=== PATIENT | female | born 1965 | race Caucasian/White ===

== ENCOUNTER 2017-06-24 15:59 | Outpatient (CLI) | payer BC | END 2017-06-24 16:00 | disposition home or self-care (01) | LOC: CONVCARE 15:59 | PROVIDERS: ATTEND Orthopaedic Surgery | DX: M25.552 Pain in left hip (principal) | CPT/HCPCS: 72170; 73502 ==

== ENCOUNTER 2017-07-30 10:32 | Outpatient (CLI) | payer BC | END 2017-07-30 10:33 | disposition home or self-care (01) | LOC: CONVCARE 10:32 | PROVIDERS: ATTEND Orthopaedic Surgery | DX: M25.552 Pain in left hip (principal); M54.5 Low back pain | CPT/HCPCS: 72120 ==

== ENCOUNTER 2018-04-06 13:48 | Day surgery (SDC) | payer BC ==
[2018-04-06] MEDS ORDERED: BUPIVACAINE HCL 0.25% MPF 30 ML SOL INFIL ONE (14:45)
[2018-04-06] MEDS: DEXAMETHASONE SOD PHOS PF 10 MG/ML SOL IJ ONE ×5 (14:56→15:03)
[2018-04-06 15:18] VITALS: BP 169/98; PULSE 78; RESP 18; TEMP 97.4; O2SAT 99
== END 2018-04-06 15:33 | disposition home or self-care (01) ==
LOC: SURG 13:48
PROVIDERS: ATTEND Nurse Anesthetist, Certified Registered
DX: M54.5 Low back pain (principal); M54.17 Radiculopathy, lumbosacral region
CPT/HCPCS: J1100

== ENCOUNTER 2018-05-10 12:33 | Day surgery (SDC) | payer BC ==
[2018-05-10] MEDS ORDERED: BUPIVACAINE HCL 0.25% MPF 30 ML SOL INFIL ONE (13:23)
[2018-05-10] MEDS ORDERED: LIDOCAINE HCL 1% MPF 30 SOL ONE (13:25)
[2018-05-10 13:39] VITALS: O2SAT 100
[2018-05-10 13:53] VITALS: PULSE 66
[2018-05-10 14:26] VITALS: BP 177/91; RESP 18; TEMP 98.1
== END 2018-05-10 14:20 | disposition home or self-care (01) ==
LOC: SURG 12:33
PROVIDERS: ATTEND Nurse Anesthetist, Certified Registered
DX: M89.38 Hypertrophy of bone, other site (principal); M12.88 Other specific arthropathies, not elsewhere classified, other specified site
CPT/HCPCS: J2001

== ENCOUNTER 2018-06-08 12:40 | Day surgery (SDC) | payer BC ==
[2018-06-08] MEDS ORDERED: TRIAMCINOLONE ACETONIDE 40 MG/ML SUS ONE (13:20)
[2018-06-08] MEDS ORDERED: BUPIVACAINE HCL 0.5% MPF 10 ML SOL ONE (13:20)
[2018-06-08 13:38] VITALS: RESP 18
[2018-06-08 13:55] VITALS: BP 153/97; PULSE 81; TEMP 98; O2SAT 98
== END 2018-06-08 14:10 | disposition home or self-care (01) ==
LOC: SURG 12:40
PROVIDERS: ATTEND Nurse Anesthetist, Certified Registered
DX: M12.88 Other specific arthropathies, not elsewhere classified, other specified site (principal)
CPT/HCPCS: J3300

== ENCOUNTER 2019-02-20 13:34 | Outpatient (CLI) | payer BC ==
[2018-06-08 13:55] VITALS: O2SAT 98
== END 2019-02-20 13:35 | disposition home or self-care (01) ==
LOC: CONVCARE 13:34
PROVIDERS: ATTEND Orthopaedic Surgery
DX: M54.5 Low back pain (principal); M53.3 Sacrococcygeal disorders, not elsewhere classified; M25.551 Pain in right hip
CPT/HCPCS: 73502; 73560

== ENCOUNTER 2019-04-17 13:11 | Outpatient (CLI) | payer BC ==
[2018-06-08 13:55] VITALS: O2SAT 98
== END 2019-04-17 13:12 | disposition home or self-care (01) ==
LOC: CONVCARE 13:11
PROVIDERS: ATTEND Orthopaedic Surgery
DX: M79.662 Pain in left lower leg (principal); M79.661 Pain in right lower leg; M24.151 Other articular cartilage disorders, right hip; M25.561 Pain in right knee
CPT/HCPCS: 73562

== ENCOUNTER 2019-05-22 11:21 | Day surgery (SDC) | payer BC ==
[2019-05-22] MEDS ORDERED: MIDAZOLAM 2 MG/2 ML SOL ONE (12:35)
[2019-05-22] MEDS ORDERED: PROPOFOL 500 MG/50 ML EMU IV ONE (12:35)
[2019-05-22] MEDS ORDERED: FENTANYL 100MCG/2ML SOL ONE (12:36)
[2019-05-22] MEDS ORDERED: METOCLOPRAMIDE HYDROCHLORIDE 5 MG/ML SOL ONE (12:38)
[2019-05-22] MEDS ORDERED: ONDANSETRON HCL 4 MG/2 ML SOL ONE (12:38)
[2019-05-22] MEDS ORDERED: KETOROLAC TROMETHAMINE 30 MG/ML SOL ONE (12:38)
[2019-05-22] MEDS ORDERED: CLINDAMYCIN 150 MG/ML SOL ONE (13:07)
[2019-05-22] MEDS: HYDROMORPHONE 1 MG/ML SYRINGE ONE ×2 (13:55→14:20)
[2019-05-22 14:23] VITALS: RESP 16
[2019-05-22 15:51] VITALS: TEMP 97.5; O2SAT 97
[2019-05-22 16:18] VITALS: BP 154/88; PULSE 64
== END 2019-05-22 16:00 | disposition home or self-care (01) ==
LOC: SURG 11:21
PROVIDERS: ATTEND Orthopaedic Surgery
DX: S83.241D Other tear of medial meniscus, current injury, right knee, subsequent encounter (principal)
CPT/HCPCS: J1885; J2250; J2405; J2765; J3010; J3490; J1170; J2704